=== PATIENT | female | born 1995 | race African-American/Black ===

== ENCOUNTER 2017-09-05 02:54 | Emergency (ER) | payer BC ==
[2012-06-27 10:19] VITALS: BMI 31.5
== END 2017-09-05 03:45 | disposition home or self-care (01) ==
LOC: D.ER 02:54
DX: M62.830 Muscle spasm of back (principal); S29.012A Strain of muscle and tendon of back wall of thorax, initial encounter; X58.XXXA Exposure to other specified factors, initial encounter; Y93.89 Activity, other specified; Y92.89 Other specified places as the place of occurrence of the external cause; F17.200 Nicotine dependence, unspecified, uncomplicated; M32.9 Systemic lupus erythematosus, unspecified; M35.00 Sjogren syndrome, unspecified